=== PATIENT | male | born 1965 | race African-American/Black ===

== ENCOUNTER 2017-08-19 16:22 | Emergency (ER) | payer MEDICAID, OTHER ==
[~2017-08-19] VITALS: Ht 185.4 cm; Wt 109.0 kg
[~2017-08-19 16:22] MED LIST: TRAMADOL
[2017-08-19 16:32] VITALS: BP 145/93
== END 2017-08-19 21:00 | disposition left against medical advice (07) ==
LOC: ER 18:01
DX: R61 Generalized hyperhidrosis (principal)
CPT/HCPCS: 93005; 99283